=== PATIENT | female | born 1995 | race Caucasian/White ===

== ENCOUNTER 2018-03-16 01:11 | Emergency (ER) | payer SELFPAY ==
[2018-03-16 02:08] LABS: Urine Blood NEGATIVE (NEG); Urine Glucose NEGATIVE (NEG); Urine Protein NEGATIVE (NEG); Urine pH 6.5 (5.0-7.0)
[2018-03-16 02:08] LABS: Absolute Lymphocytes (CBC) 2.4 K/uL (0.7-4.9); Absolute Monocytes 0.5 K/uL (0.1-1.3); Basophils % 0.4 % (0-1.3); Eosinophils % 4.3 % (0-4.4); Hematocrit 41.5 % (36.0-45.0); Lymphocytes % 28.8 % (15.3-44.8); MCH 28.4 pg (27.0-35.0); MCV 83.9 fL (80-100); MPV 9.5 fL (7.6-11.3); Monocytes % 6.3 % (3.3-12.3); RBC Red Blood Cell Count 4.95 M/uL (3.86-4.86)
[2018-03-16 02:12] LABS: Barbiturates NEGATIVE (NEGATIVE); Benzodiazepines NEGATIVE (NEGATIVE); Cocaine NEGATIVE (NEGATIVE); METHAMPHETAM NEGATIVE (NEGATIVE); Methadone NEGATIVE (NEGATIVE); Opiates NEGATIVE (NEGATIVE); Phencyclidine NEGATIVE (NEGATIVE); THC Cannibis POSITIVE (NEGATIVE)
[2018-03-16 02:35] LABS: BUN Blood Urea Nitrogen 11 mg/dL (7-18); Bicarbonate 28 mmol/L (21-32); Glucose Level 93 mg/dL (74-106); Magnesium 2.1 mg/dL (1.8-2.4); Potassium 3.3 mmol/L (3.5-5.1); Sodium Level 142 mmol/L (136-145); T3 Free 3.72 pg/mL (2.18-3.98); Troponin I < 0.02 ng/mL (0.0-0.045)
--- NOTE | 2018-03-16 02:45 | ER ---
Nurse's Notes [facility] Name: Liliana Herrera Age: 22 yrs Sex: Female : 1995 Arrival Date: 03/16/2018 Time: 01:15 Bed 14 Private MD: Diagnosis: Palpitations;Low back pain Presentation: 03/16 01:29 Presenting complaint: Patient states: I have been having palpitations that started jb4 about 3 days ago. When the palpitations occur I get dizzy and light headed and have chest tightness, I have also noticed that my back hurts when they occur. Transition of care: patient was not received from another setting of care. Onset of symptoms was March 13, 2018. Risk Assessment: Do you want to hurt yourself or someone else? Patient reports no desire to harm self or others. Initial Sepsis Screen: Does the patient meet any 2 criteria? No. Patient's initial sepsis screen is negative. Does the patient have a suspected source of infection? No. Patient's initial sepsis screen is negative. Care prior to arrival: None. 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 - Social history:: Smoking status: Patient/guardian denies using tobacco, Patient uses Smokes E-cigerrates . - Ebola Screening: : No symptoms or risks identified at this time. Screenin:32 Abuse screen: Denies threats or abuse. Nutritional screening: No deficits noted. jb4 Tuberculosis screening: No symptoms or risk factors identified. Fall Risk IV access (20 points). Total Diaz Fall Scale indicates No Risk (0-24 pts). Assessment: 01:32 General: Appears in no apparent distress. comfortable, Behavior is calm, cooperative, jb4 appropriate for age. Pain: Complains of pain in back Pain does not radiate. Pain currently is 0 out of 10 on a pain scale. at worst was 5 out of 10 on a pain scale. Quality of pain is described as aching, throbbing, Pain began 2-3 days ago. Is intermittent. Neuro: Level of Consciousness is awake, alert, obeys commands, Oriented to person, place, time, situation. Cardiovascular: Heart tones S1 S2 present Patient's skin is warm and dry. Rhythm is sinus rhythm. Respiratory: Airway is patent Respiratory effort is even, unlabored, Respiratory pattern is regular, symmetrical, Breath sounds are clear bilaterally. GI: No signs and/or symptoms were reported involving the gastrointestinal system. : No signs and/or symptoms were reported regarding the genitourinary system. EENT: No signs and/or symptoms were reported regarding the EENT system. Derm: Skin is intact, Skin is pink, warm \T\ dry. Musculoskeletal: Circulation, motion, and sensation intact. 02:40 Reassessment: Patient appears in no apparent distress at this time. Patient and/or jb4 family updated on plan of care and expected duration. Pain level reassessed. Patient is alert, oriented x 3, equal unlabored respirations, skin warm/dry/pink. Vital Signs: 01:32 BP 141 / 98; Pulse 84; Resp 16; Temp 98.4(O); Pulse Ox 98% on R/A; Weight 56.7 kg (R); jb4 Height 5 ft. 7 in. (170.18 cm) (R); Pain 0/10; 02:40 BP 113 / 70; Pulse 70; Resp 16; Pulse Ox 98% on R/A; jb4 01:32 Body Mass Index 19.58 (56.70 kg, 170.18 cm) [facility] ED Course: 01:15 Patient arrived in ED. es 01:18 Stefan Knight, SHAZIA is Primary Nurse. jb4 01:27 Nhan Beckford MD is Attending Physician. gs 01:27 Nestor Comer PA is PHCP. cp 01:30 Triage completed. jb4 01:32 Arm band placed on left wrist. EKG completed in triage. Results shown to MD. jb4 01:32 Patient has correct armband on for positive identification. Bed in low position. Call [facility] light in reach. Side rails up X 1. Pulse ox on. NIBP on. 01:32 Initial lab(s) drawn, by me, sent to lab. Inserted saline lock: 20 gauge in right jb4 antecubital area, using aseptic technique. Blood collected. 02:05 CBC with Diff Sent. jb4 02:05 BMP Sent. jb4 02:05 TSH Sent. jb4 02:05 T3 Free Sent. jb4 02:05 Magnesium Sent. jb4 02:05 UDS Sent. jb4 02:05 D-Dimer Sent. jb4 02:05 Troponin I Sent. jb4 02:05 Urine Dipstick--Ancillary (enter results) Sent. jb4 02:05 Urine --Ancillary (enter results) Sent. jb4 02:59 No provider procedures requiring assistance completed. IV discontinued, intact, jb4 bleeding controlled. 06:14 XRAY Chest (1 view) In Process Unspecified. EDMS Administered Medications: 02:46 Drug: Potassium Effervescent Tablet 50 mEq Route: PO; jb4 02:47 Follow up: Response: No adverse reaction jb4 Outcome: 02:44 Discharge ordered by . cp 02:59 Discharged to home ambulatory, with family. jb4 02:59 Condition: stable 02:59 Discharge instructions given to patient, family, Instructed on discharge instructions, follow up and referral plans. medication usage, Demonstrated understanding of instructions, follow-up care, medications, Prescriptions given X 1. 03:00 Patient left the ED. jb4 Signatures: Dispatcher [employer] EDPeggy Bray Corey, PA PA cp Bryson, James, SHAZIA RN jb4 Nhan Beckford MD MD
--- NOTE | 2018-03-16 02:45 | EDPHYS ---
Physician Documentation [facility] Name: Liliana Herrera Age: 22 yrs Sex: Female : 1995 Arrival Date: 03/16/2018 Time: 01:15 Bed 14 Private MD: ED Physician Nhan Beckford HPI: 03/16 01:40 This 22 yrs old Female presents to ER via Ambulatory with complaints of cp Palpitations, Back Pain. 01:40 The patient presents with a history of heart racing. Context: The symptoms occur cp without known cause. Onset: The symptoms/episode began/occurred 3 day(s) ago. Duration: The patient or guardian reports multiple episodes, that are intermittent. 01:40 Associated signs and symptoms: Pertinent positives: chest pain, low back pain, cp dizziness, Pertinent negatives: fever, syncope, vomiting. 01:40 Severity of symptoms: in the emergency department the symptoms have improved. 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 - Social history:: Smoking status: Patient/guardian denies using tobacco, Patient uses Smokes E-cigerrates . - Ebola Screening: : No symptoms or risks identified at this time. ROS: 01:45 Constitutional: Negative for body aches, chills, fever, poor PO intake. cp 01:45 Eyes: Negative for injury, pain, redness, and discharge. cp 01:45 ENT: Negative for drainage from ear(s), ear pain, sore throat, difficulty swallowing, difficulty handling secretions. 01:45 Cardiovascular: Positive for chest pain, palpitations, Negative for edema. 01:45 Respiratory: Negative for cough, shortness of breath, wheezing. 01:45 Abdomen/GI: Negative for abdominal pain, vomiting, diarrhea, constipation. 01:45 Back: Positive for pain at rest. 01:45 : Negative for urinary symptoms, vaginal bleeding, vaginal discharge. 01:45 Skin: Negative for cellulitis, rash. 01:45 Neuro: Positive for dizziness, Negative for altered mental status, headache, syncope, near syncope, weakness. 01:45 All other systems are negative. Exam: 01:36 ECG was reviewed by the Attending Physician. cp 01:50 Constitutional: The patient appears in no acute distress, alert, awake, comfortable, cp non-toxic, well developed, well nourished. 01:50 Head/Face: Normocephalic, atraumatic. Eyes: Pupils equal round and reactive to light, cp extra-ocular motions intact. Lids and lashes normal. Conjunctiva and sclera are non-icteric and not injected. Cornea within normal limits. Periorbital areas with no swelling, redness, or edema. ENT: Nares patent. No nasal discharge, no septal abnormalities noted. Tympanic membranes are normal and external auditory canals are clear. Oropharynx with no redness, swelling, or masses, exudates, or evidence of obstruction, uvula midline. Mucous membranes moist. Neck: Trachea midline, no thyromegaly or masses palpated, and no cervical lymphadenopathy. Supple, full range of motion without nuchal rigidity, or vertebral point tenderness. No Meningismus. Chest/axilla: Normal chest wall appearance and motion. Nontender with no deformity. No lesions are appreciated. Cardiovascular: Regular rate and rhythm with a normal S1 and S2. No gallops, murmurs, or rubs. Normal PMI, no JVD. No pulse deficits. Respiratory: Lungs have equal breath sounds bilaterally, clear to auscultation and percussion. No rales, rhonchi or wheezes noted. No increased work of breathing, no retractions or nasal flaring. Abdomen/GI: Soft, non-tender, with normal bowel sounds. No distension or tympany. No guarding or rebound. No evidence of tenderness throughout. 01:50 Back: pain, that is mild, of the mid back area, ROM is normal. 01:50 Skin: cellulitis, is not appreciated, no rash present. 01:50 Neuro: Orientation: to person, place \T\ time. Mentation: is normal, Cerebellar function: is grossly normal, Motor: is normal, Sensation: is normal. Vital Signs: 01:32 BP 141 / 98; Pulse 84; Resp 16; Temp 98.4(O); Pulse Ox 98% on R/A; Weight 56.7 kg (R); jb4 Height 5 ft. 7 in. (170.18 cm) (R); Pain 0/10; 02:40 BP 113 / 70; Pulse 70; Resp 16; Pulse Ox 98% on R/A; jb4 01:32 Body Mass Index 19.58 (56.70 kg, 170.18 cm) jb4 MDM: 01:34 Patient medically screened. cp 02:42 Data reviewed: vital signs, nurses notes, lab test result(s), EKG, radiologic studies, cp plain films. 02:42 Differential diagnosis: arrythmia, dehydration, electrolyte abnormality. Test cp interpretation: by ED physician or midlevel provider: ECG, plain radiologic studies. Counseling: I had a detailed discussion with the patient and/or guardian regarding: the historical points, exam findings, and any diagnostic results supporting the discharge/admit diagnosis, lab results, radiology results, to return to the emergency department if symptoms worsen or persist or if there are any questions or concerns that arise at home. 03/16 01:34 Order name: CBC with Diff cp 03/16 01:34 Order name: BMP cp 03/16 01:34 Order name: TSH cp 03/16 01:34 Order name: T3 Free cp 03/16 01:34 Order name: Magnesium cp 03/16 01:34 Order name: UDS cp 03/16 01:34 Order name: D-Dimer cp 03/16 01:34 Order name: Troponin I cp 03/16 02:03 Order name: Urine Dipstick--Ancillary (enter results) ag4 03/16 02:03 Order name: Urine --Ancillary (enter results) ag4 03/16 02:09 Order name: CBC with Automated Diff; Complete Time: 02:19 EDMS 03/16 02:19 Interpretation: Normal except: RBC 4.95. cp 03/16 02:09 Order name: Urine --Ancillary; Complete Time: 02:19 EDMS 03/16 02:09 Order name: Urine Dipstick-Ancillary; Complete Time: 02:19 EDMS 03/16 02:35 Interpretation: Reviewed. cp 03/16 02:18 Order name: Urine Drug Screen; Complete Time: 02:19 EDMS 03/16 02:20 Interpretation: Normal except: THC POSITIVE. cp 03/16 01:32 Order name: EKG; Complete Time: 01:33 cp 03/16 01:32 Order name: EKG - Nurse/Tech; Complete Time: 02:04 03/16 01:34 Order name: Urine Dipstick-Ancillary (obtain specimen); Complete Time: 02:04 03/16 01:34 Order name: Urine Test (obtain specimen); Complete Time: 02:05 cp 03/16 01:34 Order name: IV; Complete Time: 02:04 03/16 02:18 Order name: D-Dimer; Complete Time: 02:19 EDPR 03/16 02:35 Interpretation: Within normal limits: D-DIMER < 215. 03/16 02:21 Order name: XRAY Chest (1 view) 03/16 02:38 Order name: Basic Metabolic Panel EDMS 03/16 02:38 Interpretation: Normal except: K 3.3. 03/16 02:38 Order name: Troponin I EDMS 03/16 02:38 Order name: T3 Free EDMS 03/16 02:38 Order name: Magnesium EDMS 03/16 02:38 Order name: Thyroid Stimulating Hormone EDMS 03/16 02:50 Order name: T4 Free EDMS EC:36 Rate is 89 beats/min. Rhythm is regular. MI interval is normal. QRS interval is normal. QT interval is normal. Interpreted by me. Reviewed by me. Administered Medications: 02:46 Drug: Potassium Effervescent Tablet 50 mEq Route: PO; jb4 02:47 Follow up: Response: No adverse reaction [facility] Disposition: 19:16 Co-signature as Attending Physician, Nhan Beckford MD. Disposition: 03/16/18 02:44 Discharged to Home. Impression: Palpitations, Low back pain. - Condition is Stable. - Discharge Instructions: Back Pain, Adult, Palpitations, Back Exercises. - Prescriptions for Ibuprofen 600 mg Oral Tablet - take 1 tablet by ORAL route every 8 hours As needed take with food; 30 tablet. - Medication Reconciliation Form, Thank You Letter, Antibiotic Education, Prescription Opioid Use form. - Follow up: Private Physician; When: 1 - 2 days; Reason: Recheck today's complaints. - Problem is new. - Symptoms have improved. Signatures: Dispatcher [employer] EDPR Nestor Comer PA PA cp Bryson, James, RN RN Nhan Pham MD MD Corrections: (The following items were deleted from the chart) 02:45 02:44 03/16/2018 02:44 Discharged to Home. Impression: Palpitations. Condition is cp Stable. Forms are Medication Reconciliation Form, Thank You Letter, Antibiotic Education, Prescription Opioid Use. Follow up: Private Physician; When: 1 - 2 days; Reason: Recheck today's complaints. Problem is new. Symptoms have improved. cp 03:00 02:45 03/16/2018 02:44 Discharged to Home. Impression: Palpitations; Low back pain. jb4 Condition is Stable. Discharge Instructions: Back Pain, Adult, Palpitations, Back Exercises. Prescriptions for Ibuprofen 600 mg Oral Tablet - take 1 tablet by ORAL route every 8 hours As needed take with food; 30 tablet. and Forms are Medication Reconciliation Form, Thank You Letter, Antibiotic Education, Prescription Opioid Use. Follow up: Private Physician; When: 1 - 2 days; Reason: Recheck today's complaints. Problem is new. Symptoms have improved. cp
[2018-03-16] MEDS ORDERED: POTASSIUM 25 MEQ EFFERV TAB ONE (02:50)
[2018-03-16 03:22] VITALS: BP 113/70; TEMP 98.4; O2SAT 98
--- NOTE | 2018-03-16 07:11 | RAD REPORT ---
EXAM DESCRIPTION: RAD - Chest Single View - 03/16/2018 2:48 am CLINICAL HISTORY: Palpitations, a arrhythmia COMPARISON: None. TECHNIQUE: AP portable chest image was obtained 0231 hours . FINDINGS: Lungs are clear. Heart and vasculature are normal. No measurable pleural effusion and no p neumothorax. No acute bony abnormality seen. No acute aortic findings suspected. IMPRESSION: No acute cardiopulmonary process.
--- NOTE | 2018-03-16 11:29 | EKG ---
Test Date: 2018-03-16 Test Time: 01:31:40 Insurance Claims Specialist: [employer] MEASUREMENT RESULTS: Intervals: Rate: 89 RI: 116 QRSD: 74 QT: 350 QTc: 425 [place]: P: 77 RI: 116 QRS: 80 T: 61 INTERPRETIVE STATEMENTS: Normal sinus rhythm with sinus arrhythmia Normal ECG No previous ECG available for comparison Electronically Signed On 03-16-18 11:27:43 STITCHER OPERATOR by Trenton Gamez
== END 2018-03-16 03:00 | disposition home or self-care (01) ==
LOC: ER 01:11
DX: M54.5 Low back pain (principal); Z72.0 Tobacco use
CPT/HCPCS: 36415; 71045; 80048; 80307; 81003; 81025; 83735; 84439; 84443; 84481; 84484; 85025; 85379; 93005; 99284